=== PATIENT | male | born 1970 | race Caucasian/White ===

== ENCOUNTER 2018-01-30 17:52 | Emergency (ER) | payer BC ==
[2018-01-30 18:12] VITALS: BP 148/79
--- NOTE | 2018-01-30 18:29 | UC ---
HPI Febrile Illness - HPI Summary HPI Summary: 47-year-old male medical history presents with 4 days of gradually worsening, gradual onset fever, chills, generalized fatigue associated with mild cough with occasional sputum production. Similar to when he had the flu in the past. Positive for multiple sick contacts. Has had decreased appetite without nausea or vomiting. No abdominal pain. 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 Onset/Duration: Started Days Ago - 4 Timing: Constant Initial Severity: Moderate Current Severity: Mild Pain Intensity: 0 Aggravating Factors: Nothing Alleviating Factors: Nothing - Allergy/Home Medications Allergies/Adverse Reactions: Allergies Allergy/AdvReac Type Severity Reaction Status Date / Time No Known Allergies Allergy Verified 10/29/15 19:56 Home Medications: Home Medications Ibuprofen 400 mg PO DAILY 01/30/18 [History Confirmed 01/30/18] PMH/Surg Hx/FS Hx/Imm Hx - Additional Past Medical History Additional PMH: Negative for any hypertension or diabetes - Surgical History Surgical History: Yes Surgery Procedure, Year, and Place: right knee repair 1986. T&A. WISDOM TEETH REMOVED - Family History Known Family History: Positive: None - Social History Alcohol Use: Weekly Alcohol Amount: weekends Substance Use Type: None Smoking Status (MU): Never Smoked Tobacco Type: Cigarettes Amount Used/How Often: 1/4 ppd Length of Time of Smoking/Using Tobacco: 10 years - Immunization History Most Recent Influenza Vaccination: no Review of Systems Constitutional: Fever, Chills, Fatigue Respiratory: Cough All Other Systems Reviewed And Are Negative: Yes Physical Exam - Summary Physical Exam Summary: Gen: alert, in no acute distress HEENT: EOMI, normoecphalic, atruamatic. Moist mucous membranes. Neck: supple, no masses CV: Normal s1 s2, no murmurs Resp: normal breath sounds b/l GI: no tenderness, no masses Musculoskeletal: normal ROM all 4 extremities Skin: no rash Lymph: no lymphadenopathy Psych: appropriate affect, oriented Triage Information Reviewed: Yes Vital Signs: Initial Vital Signs Temp 39.1 C 01/30/18 18:05 Pulse 87 01/30/18 18:05 Resp 19 01/30/18 18:05 BP 148/79 01/30/18 18:05 Pulse Ox 93 01/30/18 18:05 Diagnostics - Radiology chest x-ray Radiology Interpretation Completed By: ED Physician - Moderate size left-sided consolidation consistent with pneumonia Course/Dx - Course Assessment/Plan: Patient seen at left-sided pneumonia on chest x-ray, started on antibiotic therapy. Patient seen to be febrile, no evidence of tachycardia or tachypnea or mental status changes. Not high risk for sepsis based on Q sofa criteria, patient should follow up with primary care physician within 2-4 days for reevaluation. Patient also instructed to report to the emergency department immediately for any worsening or concerning symptoms. Agrees to understands discharge instructions. - Diagnoses Clinic Provider Diagnoses: Left-sided pneumonia, community-acquired Discharge - Sign-Out/Discharge Documenting (check all that apply): Patient Departure - home All imaging exams completed and their final reports reviewed: Yes - Discharge Plan Condition: Stable Disposition: HOME Prescriptions: DOXYcycline CAP(*) [DOXYcycline 100MG CAP(*)] 100 mg PO BID #14 cap Patient Education Materials: Community Acquired Pneumonia (ED) Referrals: Yani Avila MD [Primary Care Provider] - Additional Instructions: PLEASE FINISH FULL COURSE OF ANTIBIOTIC PLEASE MAKE AN APPOITMENT TO BE SEEN BY A PRIMARY CARE DOCTOR WITHIN 2-4 DAYS PLEASE REPORT IMMEDIATELY TO THE EMERGENCY DEPARTMENT FOR ANY WORSENING OR CONCERNING SYMPTOMS - Billing Disposition and Condition Condition: STABLE Disposition: Home
--- NOTE | 2018-01-31 07:54 | RAD ---
INDICATION: Cough and fever. History of tobacco use. COMPARISON: No relevant prior exams available on the [facility] PACS for comparison. TECHNIQUE: Dual energy PA and routine lateral views of the chest were obtained. REPORT: Airspace consolidation involving the anterior segment of the LEFT upper lobe and lingula. Negative for volume loss. Small LEFT pleural effusion. Negative for pneumothorax. The heart, pulmonary vasculature, and mediastinal contours are unremarkable. IMPRESSION: #. LEFT upper lobe/lingula pneumonia. Radiographic follow-up suggested to ensure resolution and exclude an obscured underlying lesion. R1
== END 2018-01-30 19:17 | disposition home or self-care (01) ==
LOC: UCCORT 17:52
DX: J18.9 Pneumonia, unspecified organism (principal); F17.210 Nicotine dependence, cigarettes, uncomplicated
CPT/HCPCS: 71046; 99212; G0463